=== PATIENT | female | born 1980 ===

== ENCOUNTER 2023-08-18 14:23 | Outpatient (CLI) | payer BC, SELFPAY ==
--- NOTE | ~2023-08-18 | US_ITS ---
EXAMINATION: US pelvic complete DATE: 08/18/2023 14:50 INDICATION: Abnormal menses Comparison:No prior studies for comparison. TECHNIQUE: Multiple transabdominal and endovaginal sonographic images of the pelvis performed. FINDINGS: The uterus measures 7.9 x 3.9 x 4.4 cm. The endometrial complex measures 7 mm. The right ovary measures 3 x 2.4 x 2.3 cm and the left ovary measures 2 x 1.4 x 2 cm. There are smal l follicles in each ovary. Normal doppler signal in both ovaries. There is no free fluid in the pelvis. There are no abnormal masses seen on either side. IMPRESSION: 1. Unremarkable pelvic ultrasound. Reviewed, dictated and finalized at location L. [facility] [employer]
== END 2023-08-18 14:24 ==
LOC: MICIMG 14:25
PROVIDERS: PCP Physician Assistant; Visit Provider Physician Assistant
DX: N92.6 Irregular menstruation, unspecified (principal)
CPT/HCPCS: 76856